=== PATIENT | female | born 1995 | race Hispanic/Latino ===

== ENCOUNTER 2017-12-01 01:16 | Emergency (ER) | payer SELFPAY ==
[2017-12-01] MEDS ORDERED: IBUPROFEN 400 MG TAB ONE (01:44)
[2017-12-01] MEDS ORDERED: LEVALBUTEROL 1.25 MG/3 ML NEB ONE (01:44)
[2017-12-01 02:08] LABS: Absolute Lymphocytes (CBC) 3.4 K/uL (0.7-4.9); Absolute Monocytes 0.6 K/uL (0.1-1.3); Basophils % 0.8 % (0-1.3); Eosinophils % 2.3 % (0-4.4); MCV 93.5 fL (80-100); MPV 9.2 fL (7.6-11.3); Monocytes % 4.9 % (3.3-12.3); RBC Red Blood Cell Count 4.17 M/uL (3.86-4.86)
[2017-12-01 02:20] LABS: Potassium 3.8 mmol/L (3.5-5.1)
[2017-12-01 02:54] LABS: Urine Bacteria <20 /HPF (<20); Urine Culture Reflex Order NOT NEEDED; Urine RBC NONE SEEN /HPF (NONE SEEN)
[2017-12-01 02:56] LABS: Urine Blood NEGATIVE (NEG); Urine Glucose NEGATIVE (NEG); Urine Protein NEGATIVE (NEG); Urine Specific Gravity 1.025 (1.005-1.030); Urine pH 5.5 (5.0-7.0)
[2017-12-01 02:56] LABS: Urine Specific Gravity 1.025 (1.005-1.030)
--- NOTE | 2017-12-01 03:00 | EDPHYS ---
Physician Documentation [facility] Name: Marilyn Contreras Age: 22 yrs Sex: Female : 1995 Arrival Date: 12/01/2017 Time: 01:17 Bed 28 Private MD: ED Physician Philippe Oswald HPI: 12/01 01:23 This 22 yrs old Female presents to ER via Unassigned with complaints of rn Breathing Difficulty. 01:23 The patient has shortness of breath at rest. Onset: The symptoms/episode began/occurred rn just prior to arrival. Duration: The symptoms are continuous. The patient's shortness of breath is aggravated by deep breath. Associated signs and symptoms: Pertinent positives: chest pain, Pertinent negatives: non-productive cough, productive cough, diaphoresis, dizziness, fever, hemoptysis, loss of consciousness, vomiting. Severity of symptoms: At their worst the symptoms were mild in the emergency department the symptoms are unchanged. The patient has not experienced similar symptoms in the past. The patient has not recently seen a physician. Reports sudden onset of chest pain and sob, began at rest, no fever/cough, no abd pain, no vomiting/diarrhea. . 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 - Social history:: Smoking status: Patient uses tobacco products, smokes one pack cigarettes per day. - Family history:: not pertinent. - Ebola Screening: : Patient negative for fever greater than or equal to 101.5 degrees Fahrenheit, and additional compatible Ebola Virus Disease symptoms. - Hospitalizations: : No recent hospitalization is reported. ROS: 01:23 Constitutional: Negative for fever, chills, and weight loss, Eyes: Negative for injury, rn pain, redness, and discharge, Neck: Negative for injury, pain, and swelling, Cardiovascular: Negative for palpitations, and edema, Respiratory: Negative for cough, wheezing Abdomen/GI: Negative for abdominal pain, nausea, vomiting, diarrhea, and constipation, MS/Extremity: Negative for injury and deformity, Neuro: Negative for headache, weakness, numbness, tingling, and seizure. Exam: 01:23 Constitutional: This is a well developed, well nourished patient who is awake, alert, rn and in no acute distress. Head/Face: Normocephalic, atraumatic. Eyes: Pupils equal round and reactive to light, extra-ocular motions intact. Lids and lashes normal. Conjunctiva and sclera are non-icteric and not injected. Cornea within normal limits. Periorbital areas with no swelling, redness, or edema. Chest/axilla: Normal chest wall appearance and motion. Nontender with no deformity. No lesions are appreciated. Cardiovascular: Regular rate and rhythm with a normal S1 and S2. No gallops, murmurs, or rubs. Normal PMI, no JVD. No pulse deficits. Respiratory: mild tachypnea, no retractions, speaking full sentences Abdomen/GI: Soft, non-tender, with normal bowel sounds. No distension or tympany. No guarding or rebound. No evidence of tenderness throughout. MS/ Extremity: Pulses equal, no cyanosis. Neurovascular intact. Full, normal range of motion. Equal circumference. Neuro: Awake and alert, GCS 15, oriented to person, place, time, and situation. Cranial nerves II-XII grossly intact. Motor strength 5/5 in all extremities. Sensory grossly intact. Cerebellar exam normal. Normal gait. Vital Signs: 01:28 BP 132 / 87; Pulse 83; Resp 19; Temp 97.7; Pulse Ox 99% on R/A; Weight 68.04 kg; Height ea 5 ft. 5 in. (165.10 cm); Pain 5/10; 02:15 BP 115 / 72; Pulse 75; Resp 18; Pulse Ox 98% on R/A; ea 03:07 BP 117 / 78; Pulse 70; Resp 18; Temp 98(O); Pulse Ox 99% ; Pain 4/10; ea 01:28 Body Mass Index 24.96 (68.04 kg, 165.10 cm) ea MDM: 01:18 Patient medically screened. rn 02:59 Differential diagnosis: Anxiety Reaction pneumonia, Pneumothorax Pulmonary Embolism rn pleurisy. Data reviewed: vital signs, nurses notes, lab test result(s), EKG, radiologic studies, plain films, and as a result, I will discharge patient. Counseling: I had a detailed discussion with the patient and/or guardian regarding: the historical points, exam findings, and any diagnostic results supporting the discharge/admit diagnosis, lab results, radiology results, the need for outpatient follow up, to return to the emergency department if symptoms worsen or persist or if there are any questions or concerns that arise at home. Special discussion: Based on the patient's history, exam, and Dx evaluation, there is no indication for emergent intervention or inpatient Tx. It is understood by the patient/guardian that if the Sx's persist or worsen they need to return immediately for re-evaluation. I discussed with the patient/guardian in detail that at this point there is no indication for admission to the hospital. It is understood, however, that if the symptoms persist or worsen the patient needs to return immediately for re-evaluation. 02:59 ED course: Pt states still having sharp pains but laughing while she says this. Neg w/u rn here. Most likely pleurisy, recommended cessation of smoking and OTC meds, Return precautions given and understood.. 12/01 01:23 Order name: CBC with Diff; Complete Time: 02:23 12/01 01:23 Order name: Basic Metabolic Panel; Complete Time: 02:23 12/01 01:23 Order name: Urine Microscopic Only; Complete Time: 02:58 12/01 01:23 Order name: D-Dimer; Complete Time: 02: 12/01 02:33 Order name: Urine Dipstick--Ancillary (enter results); Complete Time: 02: [facility] 12/01 02:34 Order name: Urine --Ancillary (enter results); Complete Time: 02:58 [facility] 12/01 01:23 Order name: IV Start; Complete Time: 02: rn 12/01 01:23 Order name: Urine Test (obtain specimen); Complete Time: 02: 12/01 01:23 Order name: Urine Dipstick-Ancillary (obtain specimen); Complete Time: 02: rn 12/01 01:23 Order name: EKG; Complete Time: 01:23 rn 12/01 01:23 Order name: EKG - Nurse/Tech; Complete Time: 02:10 rn 12/01 01:23 Order name: XRAY Chest Pa And Lat (2 Views) rn Administered Medications: 01:35 Drug: Ibuprofen 800 mg Route: PO; ea 02:17 Follow up: Response: No adverse reaction; Marked relief of symptoms ea 01:40 Drug: Xopenex 1.25 mg Route: Inhalation; ea 02:17 Follow up: Response: No adverse reaction; Marked relief of symptoms ea Disposition: 12/01/17 03:00 Discharged to Home. Impression: Pleurisy, Chest pain, unspecified. - Condition is Stable. - Discharge Instructions: Nonspecific Chest Pain, Chest Wall Pain, Pleurisy. - Medication Reconciliation Form, Thank You Letter, Antibiotic Education, Prescription Opioid Use form. - Follow up: Private Physician; When: As needed; Reason: Recheck today's complaints, Re-evaluation by your physician. - Problem is new. - Symptoms have improved. Signatures: Dispatcher [employer] EDPihlippe Clements MD MD rn Antunez, Elena, RN RN ea Corrections: (The following items were deleted from the chart) 03:24 03:00 12/01/2017 03:00 Discharged to Home. Impression: Pleurisy; Chest pain, ea unspecified. Condition is Stable. Forms are Medication Reconciliation Form, Thank You Letter, Antibiotic Education, Prescription Opioid Use. Follow up: Private Physician; When: As needed; Reason: Recheck today's complaints, Re-evaluation by your physician. Problem is new. Symptoms have improved. rn
--- NOTE | 2017-12-01 03:00 | ER ---
Nurse's Notes [facility] Name: Marilyn Contreras Age: 22 yrs Sex: Female : 1995 Arrival Date: 12/01/2017 Time: 01:17 Bed 28 Private MD: Diagnosis: Pleurisy;Chest pain, unspecified Presentation: 12/01 01:25 Presenting complaint: Patient states: Patient reports pain when taking deep breath that ea started about 20 minutes ago. Transition of care: patient was not received from another setting of care. Onset of symptoms was December 01, 2017. Risk Assessment: Do you want to hurt yourself or someone else? Patient reports no desire to harm self or others. Initial Sepsis Screen: Does the patient meet any 2 criteria? No. Patient's initial sepsis screen is negative. Does the patient have a suspected source of infection? No. Patient's initial sepsis screen is negative. Care prior to arrival: None. 01:25 Method Of Arrival: Ambulatory ea 01:25 Acuity: LESLIE 3 ea Triage Assessment: 01:26 General: Appears in no apparent distress. Behavior is calm, cooperative, appropriate ea for age. Pain: Complains of pain in mid back area, left mid back and right mid back Pain does not radiate. Pain currently is 5 out of 10 on a pain scale. Quality of pain is described as aching, Aggravated by taking deep breath. EENT: No signs and/or symptoms were reported regarding the EENT system. Neuro: Level of Consciousness is awake, alert, obeys commands, Oriented to person, place, time. Cardiovascular: Heart tones S1 S2 present Patient's skin is warm and dry. Respiratory: Reports pain with respiration since 20 minutes ago Onset: The symptoms/episode began/occurred just prior to arrival, the patient reports symptoms have resolved. GI: No signs and/or symptoms were reported involving the gastrointestinal system. Abdomen is non-distended, obese. : No signs and/or symptoms were reported regarding the genitourinary system. Derm: No signs and/or symptoms reported regarding the dermatologic system. Musculoskeletal: No signs and/or symptoms reported regarding the musculoskeletal system. 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 - Social history:: Smoking status: Patient uses tobacco products, smokes one pack cigarettes per day. - Family history:: not pertinent. - Ebola Screening: : Patient negative for fever greater than or equal to 101.5 degrees Fahrenheit, and additional compatible Ebola Virus Disease symptoms. - Hospitalizations: : No recent hospitalization is reported. Screenin:30 Abuse screen: Denies threats or abuse. Nutritional screening: No deficits noted. ea Tuberculosis screening: No symptoms or risk factors identified. Fall Risk None identified. Assessment: 01:30 Reassessment: See triage assessment. Respiratory: Airway is patent Respiratory effort ea is even, unlabored, Breath sounds are clear bilaterally. 02:10 Cardiovascular: Rhythm is sinus rhythm. ea 02:13 Reassessment: Patient and/or family updated on plan of care and expected duration. Pain ea level reassessed. Patient is alert, oriented x 3, equal unlabored respirations, skin warm/dry/pink. 03:06 Reassessment: Patient and/or family updated on plan of care and expected duration. Pain ea level reassessed. Patient is alert, oriented x 3, equal unlabored respirations, skin warm/dry/pink. Discharge instructions given to patient, verbalized the understanding of instructions. Vital Signs: 01:28 BP 132 / 87; Pulse 83; Resp 19; Temp 97.7; Pulse Ox 99% on R/A; Weight 68.04 kg; Height ea 5 ft. 5 in. (165.10 cm); Pain 5/10; 02:15 BP 115 / 72; Pulse 75; Resp 18; Pulse Ox 98% on R/A; ea 03:07 BP 117 / 78; Pulse 70; Resp 18; Temp 98(O); Pulse Ox 99% ; Pain 4/10; ea 01:28 Body Mass Index 24.96 (68.04 kg, 165.10 cm) ea ED Course: 01:17 Patient arrived in ED. am2 01:18 Philippe Oswald MD is Attending Physician. rn 01:26 Triage completed. ea 01:28 Arm band placed on right wrist. Patient placed in an exam room, on a stretcher, on ea pulse oximetry. 01:28 Patient has correct armband on for positive identification. Bed in low position. Call ea light in reach. 01:33 Elyssa Ludwig, RN is Primary Nurse. ea 01:35 Patient moved to radiology via wheelchair. kp1 01:35 X-ray completed. Patient tolerated procedure well. kp1 01:37 XRAY Chest Pa And Lat (2 Views) In Process Unspecified. EDMS 01:55 Inserted saline lock: 20 gauge in left antecubital area, using aseptic technique. Blood ea collected. 02:15 EKG done, by ED staff, reviewed by Philippe Oswald MD. ea 03:08 No provider procedures requiring assistance completed. IV discontinued, intact, ea bleeding controlled, No redness/swelling at site. Pressure dressing applied. Administered Medications: 01:35 Drug: Ibuprofen 800 mg Route: PO; ea 02:17 Follow up: Response: No adverse reaction; Marked relief of symptoms ea 01:40 Drug: Xopenex 1.25 mg Route: Inhalation; ea 02:17 Follow up: Response: No adverse reaction; Marked relief of symptoms ea Outcome: 03:00 Discharge ordered by . rn 03:08 Condition: improved ea 03:08 Discharge instructions given to patient, Instructed on discharge instructions, follow up and referral plans. Demonstrated understanding of instructions, follow-up care. 03:24 Discharged to home ambulatory, with family. ea 03:24 Patient left the ED. ea Signatures: Dispatcher [employer] Philippe Rodríguez MD MD rn Moreno, Amanda am2 Poole, Kathy kp1 Elyssa Ludwig, RN ROSAURA chávez
--- NOTE | 2017-12-01 06:47 | EKG ---
Test Date: 2017-12-01 Test Time: 01:48:23 Director Of Entertainment: TOSIN MEASUREMENT RESULTS: Intervals: Rate: 72 VT: 164 QRSD: 92 QT: 386 QTc: 422 Morrison: P: 42 VT: 164 QRS: 28 T: 28 INTERPRETIVE STATEMENTS: Normal sinus rhythm with sinus arrhythmia Normal ECG No previous ECG available for comparison Electronically Signed On 12-01-17 06:47:04 CDT by Chalo Thakur
--- NOTE | 2017-12-01 08:31 | RAD REPORT ---
EXAM DESCRIPTION: RAD - Chest Pa And Lat (2 Views) - 12/01/2017 1:39 am CLINICAL HISTORY: CHEST PAIN Chest pain. COMPARISON: No comparisons FINDINGS: The lungs are clear. The heart is normal in size. No displaced fractures. IMPRESSION: No acute or concerning finding suspected.
== END 2017-12-01 03:24 | disposition home or self-care (01) ==
LOC: ER 01:16
DX: R09.1 Pleurisy (principal); F17.210 Nicotine dependence, cigarettes, uncomplicated
CPT/HCPCS: 36415; 71046; 80048; 81003; 81015; 81025; 85025; 85379; 93005; 99285